=== PATIENT | male | born 1970 | race Two or more races ===

== ENCOUNTER 2025-03-16 14:56 | Emergency (ER) | payer MEDICAID, OTHER ==
[~2025-03-16] VITALS: Ht 170.2 cm; Wt 90.0 kg
[2025-03-16] MEDS ORDERED: NAPR-957 PO (15:53)
--- NOTE | 2025-03-16 15:53 | ED.PDOC ---
Back pain HPI HPI Comments fall Chief Complaint: Fall Injury Time Seen by MD: 15:19 Allergies: Coded Allergies: NO KNOWN ALLERGIES (Unverified , 03/16/25) Home Meds Active Scripts Naproxen (Naproxen) 375 Mg Tab, 1 TAB PO BID for 10 Days, #20 TAB 0 Refills Prov:MARISA SONI NP 03/16/25 Mode of Arrival: Ambulatory X-Ray, Labs, Meds, VS Vital Signs Date Time Temp Pulse Resp B/P (MAP) Pulse Ox O2 Delivery O2 Flow Rate FiO2 03/16/25 14:57 98.3 105 18 157/105 97 98.3 SEPSIS Sepsis Screen Date sepsis recognized/suspect: Mar 16, 2025 Time Sepsis recognized/suspect: 145 Recent Procedure: No On Antibiotic Therapy: No Respiratory Rate >20: No Heart Rate >90: Yes Temp<36 C (96.8 F) or >38.3 C: No SBP <90 or MAP <65 mmHG: No New Acute Mental Status Change: No Is the patient on CPAP, BIPAP,: No Vital Signs Date Time Temp Pulse Resp B/P (MAP) Pulse Ox O2 Delivery O2 Flow Rate FiO2 03/16/25 14:57 98.3 105 18 157/105 97 98.3 Departure 1 Departure Time of Disposition: 15:52 Impression: Primary Impression: Fall from slipping on slippery surface Disposition: 01 HOME / SELF CARE / HOMELESS Condition: Stable e-Prescriptions Naproxen (Naproxen) 375 Mg Tab 1 TAB PO BID for 10 Days, #20 TAB 0 Refills Prov: MARISA SONI NP 03/16/25 Discharged With: Self I personally scribed for MARISA SONI NP ([email or web address]) on 03/16/25 at 16:15. Electronically submitted by Socorro Marte ([email or web address]). MARISA SONI NP Mar 16, 2025 15:53
--- NOTE | 2025-03-16 15:57 | ED.PDOC ---
[place] trauma (HPI) HPI Comments 54 year old male presents to the ED with a chief complaint of fall injury onset today. Patient states he slipped on wet floor, landed on bilateral knees, fell onto LT side. He is currently experiencing back pain, bilateral knee pain, bilateral shoulder pain and neck pain. Describes pain as a pulsing pain, currently rates pain 8/10. No other symptoms or modifying factors present at this time. Denies LOC head injury Denies dizziness blurred vision Denies nausea vomiting diarrhea Denies chest pain shortness of breath Chief Complaint: Fall Injury Time Seen by MD: 15:50 Reviewed notes: Medications, Allergies Allergies: Coded Allergies: NO KNOWN ALLERGIES (Unverified , 03/16/25) Home Meds Active Scripts Naproxen (Naproxen) 375 Mg Tab, 1 TAB PO BID for 10 Days, #20 TAB 0 Refills Prov:MARISA SONI Clary RALPH 03/16/25 Information Source: Patient Mode of Arrival: Ambulatory Severity: Moderate Timing: Hours Duration: Since onset Prehospital treatment: None Location: Back, (L) Knee, (R) Knee, (L) Shoulder, (R) Shoulder Location of laceration: None Mechanism: Fall Past Medical History PAST MEDICAL HISTORY: Denies Surgical History: Denies all surgeries Family History Family History: Reviewed,noncontributory to illness, No family hx of Cancer, No family hx of DM, No family hx of Heart erika, No family hx of HTN, No family hx ofKidney erika, No family hx of Liver eirka, No family hx of Lung erika, No family hx of Stroke Social History Smoker: Non-Smoker Alcohol: Denies ETOH Use Drugs: Denies Drug Use Lives In: Home All Other Systems: Reviewed and Negative (as per PHI) Physical Exam General Appearance: Normal HEENT: Normal ENT Inspection, Pharynx Normal, TMs Normal Neck: Full Range of Motion, Non-Tender, Normal, Normal Inspection Respiratory: Chest Non-Tender, Lungs Clear, No Accessory Muscle Use, No Respiratory Distress, Normal Breath Sounds Cardiovascular: No Edema, No JVD, No Murmur, No Gallop, Normal Peripheral Pulses, Regular Rate/Rhythm Breast Exam: Deferred Gastrointestinal: No Organomegaly, Non Tender, No Pulsatile Mass, Normal Bowel Sounds, Soft Genitalia: Deferred Pelvic: Deferred Rectal: Deferred Extremities: No calf tenderness, Normal capillary refill, Normal inspection, Normal range of motion, Non-tender, No pedal edema Musculoskeletal : Apperance: Normal Neurologic: Alert, registered nurse renal II-XII nml as Tested, No Motor Deficits, Normal Affect, Normal Mood, No Sensory Deficits Cerebellar Function: Normal Reflexes: Normal Skin: Dry, Normal Color, Warm Lymphatic: No Adenopathy Was a procedure done? Was a procedure done?: No X-Ray, Labs, Meds, VS Vital Signs Date Time Temp Pulse Resp B/P (MAP) Pulse Ox O2 Delivery O2 Flow Rate FiO2 03/16/25 14:57 98.3 105 18 157/105 97 98.3 X-Ray, Labs, Meds, VS Comment 54 year old male presents to the ED with a chief complaint of fall injury onset today. Patient arrives alert and oriented, ABC's intact, afebrile, vital signs stable, saturating well in room air Patient was given: Ketorolac 69 mg IM. Tolerated medications with no adverse reaction. Additional MDM Review of External, Non-ED records: External records reviewed. Discussion with independent historian (EMS, family) history obtained from the patient/parents (if applicable) at bedside Chronic conditions affecting care: None Social determinants of health affecting care: None Consideration of admission (observation or admission): I considered escalation of care to admission for this patient, however given the reassuring workup, the patient is safe for outpatient management. On reevaluation, patient had symptomatic improvement. Patient is stable for discharge at this time. External notes reviewed. Test results and diagnostic imaging interpreted. All diagnostic findings, discharge care, education and instructions provided Follow-up with PCP in 2 to 3 days Patient verbalized understanding and agreed to treatment plan Vital signs stable, afebrile, no acute distress noted Patient ambulatory with strong steady gait Advised to return precautions for any new or worsening symptoms, return to ER immediately for re-evaluation Patient is aware that the purpose of this visit was for an acute medical emergency requiring emergent stabilization. Chronic conditions, including malignancies have not been ruled out. Patient is instructed to follow up with PCP as directed and discharge instructions for continued care and workup. If unable to arrange follow-up, patient is to return to the emergency department for reassessment. Patient (parent or legal guardian if applicable) was given verbal and written discharge instructions and acknowledges understanding. Time of 1ST Reevaluation: 16:20 Reevaluation 1ST: Improved Patient Education/Counseling: Diagnosis, Treatment Family Education/Counseling: No Family Present Departure 1 Departure Time of Disposition: 15:52 Impression: Primary Impression: Fall from slipping on slippery surface Disposition: 01 HOME / SELF CARE / HOMELESS Condition: Stable e-Prescriptions Naproxen (Naproxen) 375 Mg Tab 1 TAB PO BID for 10 Days, #20 TAB 0 Refills Prov: MARISA SONI NP 03/16/25 Discharged With: Self Critical Care Note Critical Care Time?: No Stability Stability form required: No Heart Score Heart Score: Heart Score Response (Comments) Value History N/A 0 EKG N/A 0 Age N/A 0 Risk Factors N/A 0 Troponin N/A 0 Total 0 I personally scribed for MARISA SONI REGISTERED NURSE TEACHER ([email or web address]) on 03/16/25 at 15:57. Electronically submitted by Socorro Marte ([email or web address]). I personally scribed for MARISA SONI NP ([email or web address]) on 03/16/25 at 16:16. Electronically submitted by Socorro Marte ([email or web address]). MARISA SONI NP Mar 16, 2025 15:57
[2025-03-16] MEDS: KETOROLAC TROMETH 60MG/2ML VIAL IM ONE (16:26)
[2025-03-16 17:11] VITALS: BP 156/74; PULSE 64; RESP 16; TEMP 98.3; O2SAT 96
== END 2025-03-16 17:14 | disposition home or self-care (01) ==
LOC: ER 14:56
DX: M25.561 Pain in right knee (principal); M25.562 Pain in left knee; M54.2 Cervicalgia; M25.512 Pain in left shoulder; M25.511 Pain in right shoulder; M54.9 Dorsalgia, unspecified; Z79.899 Other long term (current) drug therapy; W01.198A Fall on same level from slipping, tripping and stumbling with subsequent striking against other object, initial encounter; Y93.89 Activity, other specified; Y92.89 Other specified places as the place of occurrence of the external cause; Y99.8 Other external cause status
CPT/HCPCS: 96372; 99283; J1885